=== PATIENT | female | born 1985 | race Caucasian/White ===

== ENCOUNTER 2018-07-07 18:59 | Inpatient (IN) | payer OTHER ==
[~2018-07-07 18:59] MED LIST: PROPOFOL 200 MG INJ
[2018-07-07 20:11] LABS: ADD MAN DIFF? NO
[2018-07-07 20:14] LABS: BASOPHILS % 0.3 % (0.0-2.0); EOSINOPHILS # 0.1 10^3/ul (0.0-0.5); EOSINOPHILS % 1.2 % (0.0-7.0); HEMATOCRIT 38.1 % (37.0-47.0); HEMOGLOBIN 12.6 g/dl (12.0-16.0); LYMPHOCYTES # 2.5 10^3/ul (0.8-2.9); LYMPHOCYTES % 21.2 % (15.0-51.0); MEAN CORPUSCULAR HEMOGLOBIN 27.7 pg (29.0-33.0); MEAN CORPUSCULAR HGB CONC 33.1 g/dl (32.0-37.0); MEAN CORPUSCULAR VOLUME 83.7 fl (82.0-101.0); MEAN PLATELET VOLUME 10.6 fl (7.4-10.4); MONOCYTE # 0.8 10^3/ul (0.3-0.9); MONOCYTES % 6.9 % (0.0-11.0); NEUTROPHIL # 8.3 10^3/ul (1.6-7.5); NEUTROPHILS % 69.6 % (39.0-77.0); PLATELET COUNT 255 10^3/UL (140-415); RED BLOOD COUNT 4.55 10^6/ul (4.20-5.40); RED CELL DISTRIBUTION WIDTH 13.2 % (11.5-14.5)
[2018-07-07 20:19] LABS: INR 0.92; PROTIME 12.5 Sec (11.9-14.9)
[2018-07-07] MEDS ORDERED: OXYTOCIN 30 UNITS/LR 500 ML IV (20:30)
[2018-07-07] MEDS ORDERED: METHYLERGONOVINE 0.2 MG INJ IM (20:30)
[2018-07-07] MEDS ORDERED: CARBOPROST 250 MCG INJ IM (20:30)
[2018-07-07] MEDS ORDERED: MISOPROSTOL 200 MCG TAB PR ×2 (20:30→23:30)
[2018-07-07] MEDS: LACTATED RINGER'S 1,000 ML IV (20:34)
[2018-07-07 20:59] LABS: HEPATITIS B SURFACE ANTIGEN NEGATIVE (NEGATIVE)
[2018-07-07] MEDS: METOCLOPRAMIDE 10 MG INJ IV (21:51)
[2018-07-07] MEDS: FAMOTIDINE 20 MG INJ IV (21:51)
[2018-07-07] MEDS: ONDANSETRON 4 MG INJ IV (21:51)
[2018-07-07] MEDS ORDERED: morphine SULFATE/PF (10 MG/10 ML) INJ (21:53)
[2018-07-07] MEDS ORDERED: OXYTOCIN 10 UNIT INJ (21:53)
[2018-07-07] MEDS ORDERED: MIDAZOLAM 1 MG/ML 2 ML INJ (23:26)
[2018-07-07] MEDS ORDERED: ONDANSETRON 4 MG INJ (23:27)
[2018-07-07] MEDS ORDERED: PHENYLephrine (100 MCG/ML) 10ML SYG (23:28)
[2018-07-07] MEDS ORDERED: NA PHOSPHATE/BIPHOS 133 ML ENEMA PR (23:30)
[2018-07-07] MEDS ORDERED: DEXAMETHASONE 4 MG/ML 1 ML INJ (23:37)
[2018-07-08] MEDS ORDERED: HYDROmorphONE 1 MG/5 ML IV SYRINGE IV ×3 (00:30)
[2018-07-08] MEDS ORDERED: ZOLPIDEM 5 MG TAB PO (00:30)
[2018-07-08] MEDS ORDERED: MIDAZOLAM 1 MG/ML 2 ML INJ IV (00:30)
[2018-07-08] MEDS ORDERED: FENTAnyl 50 MCG/ML VIAL IV ×2 (00:30)
[2018-07-08] MEDS ORDERED: KETOROLAC 30 MG INJ IV (00:30)
[2018-07-08] MEDS ORDERED: NALOXONE (0.4 MG/ML) INJ IV (00:30)
[2018-07-08] MEDS ORDERED: ONDANSETRON 4 MG INJ IV ×2 (00:30)
[2018-07-08] MEDS ORDERED: PROCHLORPERAZINE 10 MG INJ IV (00:30)
[2018-07-08] MEDS ORDERED: LORAZEPAM 2 MG INJ IV (00:30)
[2018-07-08] MEDS ORDERED: DIPHENHYDRAMINE 50 MG INJ IV ×2 (00:30)
[2018-07-08] MEDS ORDERED: LEVALBUTEROL (NEB) 1.25 MG/0.5 ML AMP HHN (00:30)
[2018-07-08] MEDS ORDERED: IPRATROPIUM (NEB) 0.5 MG/2.5 ML AMP HHN (00:30)
[2018-07-08] MEDS ORDERED: HYDROmorphONE 0.5 MG/0.5 ML SYG IV (00:30)
[2018-07-08] MEDS ORDERED: HALOPERIDOL 5 MG INJ IV (00:30)
[2018-07-08] MEDS ORDERED: TRIMETHOBENZAMIDE 100 MG/ML VIAL IM (00:30)
[2018-07-08] MEDS: OXYTOCIN 30 UNITS/LR 500 ML IV ×2 (00:55→06:10)
[2018-07-08] MEDS: CEFAZOLIN 2 GM/50 ML (PMX) 50 ML IVPB (02:14)
[2018-07-08] MEDS: LACTATED RINGER'S 1,000 ML IV ×2 (02:45→17:50)
[2018-07-08] MEDS ORDERED: CARBOPROST 250 MCG INJ IM (05:00)
[2018-07-08] MEDS ORDERED: OXYTOCIN 30 UNITS/LR 500 ML IV (05:00)
[2018-07-08] MEDS ORDERED: MISOPROSTOL 200 MCG TAB PR (05:00)
[2018-07-08] MEDS ORDERED: METHYLERGONOVINE 0.2 MG INJ IM (05:00)
[2018-07-08 07:43] LABS: ADD MAN DIFF? NO
[2018-07-08 07:48] LABS: WHITE BLOOD COUNT 16.6 10^3/ul (4.8-10.8)
[2018-07-08 07:48] LABS: BASOPHILS % 0.2 % (0.0-2.0); HEMATOCRIT 32.4 % (37.0-47.0); HEMOGLOBIN 10.8 g/dl (12.0-16.0); LYMPHOCYTES # 1.6 10^3/ul (0.8-2.9); LYMPHOCYTES % 9.5 % (15.0-51.0); MEAN CORPUSCULAR HEMOGLOBIN 27.9 pg (29.0-33.0); MEAN CORPUSCULAR HGB CONC 33.3 g/dl (32.0-37.0); MEAN CORPUSCULAR VOLUME 83.7 fl (82.0-101.0); MEAN PLATELET VOLUME 10.9 fl (7.4-10.4); MONOCYTES % 6.1 % (0.0-11.0); NEUTROPHIL # 13.9 10^3/ul (1.6-7.5); NEUTROPHILS % 83.5 % (39.0-77.0); PLATELET COUNT 239 10^3/UL (140-415); RED BLOOD COUNT 3.87 10^6/ul (4.20-5.40); RED CELL DISTRIBUTION WIDTH 13.4 % (11.5-14.5)
[2018-07-08] MEDS: KETOROLAC 30 MG INJ IV ×2 (08:52→16:09)
[2018-07-08] MEDS: LANOLIN HPA 1 PKT TOP (08:54)
[2018-07-08] MEDS: SENNA/DOCUSATE NA (8.6MG/50MG) TAB PO ×2 (08:54→21:06)
[2018-07-08] MEDS: ALBUTEROL HFA 8 GM INHALER INH (16:08)
[2018-07-08] MEDS ORDERED: LORAZEPAM 1 MG TAB (21:03)
[2018-07-08] MEDS: HYDROmorphONE 0.5 MG/0.5 ML SYG IV (21:06)
[2018-07-08] MEDS: LORAZEPAM 0.5 MG TAB PO (21:08)
[2018-07-08] MEDS: ENOXAPARIN 40 MG/0.4 ML SYG SC (21:43)
[2018-07-08 22:03] LABS: RAPID PLASMA REAGIN NONREACTIVE (NR)
[2018-07-08] MEDS: OXYCODONE/ACETAMINOPHEN (5/325) TAB PO (23:26)
[2018-07-09] MEDS: IBUPROFEN 600 MG TAB PO ×5 (00:27→23:33)
[2018-07-09] MEDS: OXYCODONE/ACETAMINOPHEN (5/325) TAB PO ×4 (04:15→20:03)
[2018-07-09] MEDS: LEVOTHYROXINE 125 MCG TAB PO (05:54)
[2018-07-09] MEDS: FLUTICASONE 0.05% 16 GM NAS SPRAY NASAL (08:48)
[2018-07-09] MEDS: SENNA/DOCUSATE NA (8.6MG/50MG) TAB PO ×2 (08:48→20:45)
[2018-07-09] MEDS: ENOXAPARIN 40 MG/0.4 ML SYG SC ×2 (08:52→20:45)
[2018-07-09] MEDS: ALBUTEROL HFA 8 GM INHALER INH (14:06)
[2018-07-10] MEDS: OXYCODONE/ACETAMINOPHEN (5/325) TAB PO ×3 (02:56→13:24)
[2018-07-10] MEDS: LEVOTHYROXINE 125 MCG TAB PO (06:05)
[2018-07-10] MEDS: IBUPROFEN 600 MG TAB PO ×2 (06:05→11:47)
[2018-07-10] MEDS: FLUTICASONE 0.05% 16 GM NAS SPRAY NASAL (08:17)
[2018-07-10] MEDS: SENNA/DOCUSATE NA (8.6MG/50MG) TAB PO (08:17)
[2018-07-10] MEDS: ENOXAPARIN 40 MG/0.4 ML SYG SC (08:19)
[2018-07-10] MEDS: DIPHTH/TET/ACEL PERTUSS (ADULT) 0.5 ML VIAL IM* (09:00)
[2018-07-10] MEDS: MEASLES,MUMPS,RUBELLA VACCINE INJ SC* (09:00)
== END 2018-07-10 14:00 | disposition home or self-care (01) | DRG 788 ==
LOC: L-D 07-08 00:49 → PP1 07-08 03:28 → L-D 22:49
PROVIDERS: Specialist
PROC: 10D00Z1 Extraction of Products of Conception, Low, Open Approach (ICD-10-PCS; principal; 2018-07-08)
DX: O34.211 Maternal care for low transverse scar from previous cesarean delivery (principal); O99.284 Endocrine, nutritional and metabolic diseases complicating childbirth; E03.9 Hypothyroidism, unspecified; O99.344 Other mental disorders complicating childbirth; F41.9 Anxiety disorder, unspecified; O99.214 Obesity complicating childbirth; E66.01 Morbid (severe) obesity due to excess calories; O99.513 Diseases of the respiratory system complicating pregnancy, third trimester; J45.909 Unspecified asthma, uncomplicated; O99.353 Diseases of the nervous system complicating pregnancy, third trimester; G47.30 Sleep apnea, unspecified; O99.62 Diseases of the digestive system complicating childbirth; K21.9 Gastro-esophageal reflux disease without esophagitis; Z3A.39 39 weeks gestation of pregnancy; Z37.0 Single live birth
CPT/HCPCS: 85025; 85610; 85730; 86592; 86850; 86900; 86901; 87340; 99464

== ENCOUNTER 2019-02-24 08:12 | Observation (INO) | payer OTHER ==
[2019-02-24] MEDS: KETOROLAC 30 MG INJ IV (08:41)
[2019-02-24] MEDS: SOD CHLORIDE 0.9% 1,000 ML IV ×2 (08:41→20:53)
[2019-02-24] MEDS: ONDANSETRON 4 MG INJ IV ×2 (08:41→12:28)
[2019-02-24] MEDS: ALPRAZOLAM 0.25 MG TAB PO (08:46)
[2019-02-24 08:57] LABS: ADD MAN DIFF? NO
[2019-02-24 09:03] LABS: WHITE BLOOD COUNT 15.1 10^3/ul (4.8-10.8)
[2019-02-24 09:03] LABS: BASOPHIL # 0.1 10^3/ul (0.0-0.1); BASOPHILS % 0.4 % (0.0-2.0); EOSINOPHILS # 0.2 10^3/ul (0.0-0.5); EOSINOPHILS % 1.5 % (0.0-7.0); HEMATOCRIT 41.2 % (37.0-47.0); HEMOGLOBIN 13.3 g/dl (12.0-16.0); LYMPHOCYTES # 2.7 10^3/ul (0.8-2.9); MEAN CORPUSCULAR HEMOGLOBIN 27.8 pg (29.0-33.0); MEAN CORPUSCULAR HGB CONC 32.3 g/dl (32.0-37.0); MEAN PLATELET VOLUME 10.2 fl (7.4-10.4); MONOCYTE # 0.9 10^3/ul (0.3-0.9); NEUTROPHIL # 11.2 10^3/ul (1.6-7.5); NEUTROPHILS % 73.6 % (39.0-77.0); PLATELET COUNT 299 10^3/UL (140-415); RED BLOOD COUNT 4.79 10^6/ul (4.20-5.40); RED CELL DISTRIBUTION WIDTH 12.8 % (11.5-14.5)
[2019-02-24 09:19] LABS: ALANINE AMINOTRANSFERASE 48 IU/L (13-69); ALKALINE PHOSPHATASE 76 IU/L (42-121); ASPARTATE AMINO TRANSFERASE 31 IU/L (15-46); BILIRUBIN,INDIRECT 0.7 mg/dl (0-1.1); BILIRUBIN,TOTAL 0.7 mg/dl (0.2-1.3); BLOOD UREA NITROGEN 9 mg/dl (7-20); CALCIUM 9.4 mg/dl (8.4-10.2); CHLORIDE 102 mmol/L (97-110); CREATININE 0.64 mg/dl (0.44-1.00); Estimated GFR > 60 mL/min (>60); GLUCOSE 108 mg/dl (70-220); LIPASE 58 U/L (23-300); POTASSIUM 4.2 mmol/L (3.5-5.1); SODIUM 140 mmol/L (135-144); TOTAL PROTEIN 7.8 g/dl (6.1-8.1)
[2019-02-24 09:20] LABS: ANION GAP 11 (5-13); CARBON DIOXIDE 27 mmol/L (21-31)
[2019-02-24 09:36] LABS: ALBUMIN 4.3 g/dl (3.3-4.9); ALBUMIN/GLOBULIN RATIO 1.22
[2019-02-24] MEDS: PIPER-TAZO 3.375 GM IV (PMX) 100 ML IVPB ×2 (10:20→19:02)
[2019-02-24 10:25] LABS: ADD UMIC NO; UR ASCORBIC ACID NEGATIVE (NEGATIVE); UR BILIRUBIN (Dip) NEGATIVE (NEGATIVE); UR BLOOD (Dip) NEGATIVE (NEGATIVE); UR CLARITY CLEAR (CLEAR); UR COLOR STRAW (YELLOW); UR GLUCOSE (Dip) NEGATIVE (NEGATIVE); UR KETONES (Dip) NEGATIVE (NEGATIVE); UR LEUKOCYTE ESTERASE (Dip) NEGATIVE Leu/ul (NEGATIVE); UR NITRITE (Dip) NEGATIVE (NEGATIVE); UR SPECIFIC GRAVITY (Dip) 1.005 (1.003-1.030); UR TOTAL PROTEIN (Dip) NEGATIVE (NEGATIVE); UR UROBILINOGEN (Dip) NEGATIVE (NEGATIVE)
[2019-02-24] MEDS ORDERED: ACETAMINOPHEN 325 MG TAB PO ×2 (11:00→14:30)
[2019-02-24] MEDS: morphine 4 MG/ML VIAL IV (11:02)
[2019-02-24] MEDS ORDERED: ALBUTEROL 0.083% (NEB) 2.5 MG/3 ML AMP HHN (14:30)
[2019-02-24] MEDS ORDERED: NACL 0.9% 3 ML SYG IV (14:30)
[2019-02-24] MEDS ORDERED: HYDROCODONE/APAP (5/325) TAB PO (14:30)
[2019-02-24 14:44] LABS: HEMOGLOBIN A1C 5.7 % (0-5.9)
[2019-02-24 14:50] LABS: FREE T4 (FREE THYROXINE) 1.21 ng/dl (0.79-2.35)
[2019-02-24] MEDS: morphine 2 MG INJ IV ×2 (16:44→22:47)
[2019-02-24] MEDS: LORAZEPAM 2 MG INJ IV (19:51)
[2019-02-24] MEDS: MONTELUKAST 10 MG TAB PO (20:53)
[2019-02-25] MEDS: PIPER-TAZO 3.375 GM IV (PMX) 100 ML IVPB ×3 (00:20→11:44)
[2019-02-25 05:59] LABS: ADD MAN DIFF? NO
[2019-02-25 06:05] LABS: WHITE BLOOD COUNT 8.4 10^3/ul (4.8-10.8)
[2019-02-25 06:05] LABS: BASOPHIL # 0.1 10^3/ul (0.0-0.1); BASOPHILS % 0.6 % (0.0-2.0); EOSINOPHILS # 0.3 10^3/ul (0.0-0.5); EOSINOPHILS % 3.3 % (0.0-7.0); HEMATOCRIT 36.7 % (37.0-47.0); HEMOGLOBIN 11.6 g/dl (12.0-16.0); LYMPHOCYTES # 3.1 10^3/ul (0.8-2.9); LYMPHOCYTES % 37.2 % (15.0-51.0); MEAN CORPUSCULAR HEMOGLOBIN 28.2 pg (29.0-33.0); MEAN CORPUSCULAR HGB CONC 31.6 g/dl (32.0-37.0); MEAN CORPUSCULAR VOLUME 89.3 fl (82.0-101.0); MEAN PLATELET VOLUME 10.2 fl (7.4-10.4); MONOCYTE # 0.8 10^3/ul (0.3-0.9); MONOCYTES % 9.7 % (0.0-11.0); NEUTROPHIL # 4.1 10^3/ul (1.6-7.5); NEUTROPHILS % 48.7 % (39.0-77.0); PLATELET COUNT 260 10^3/UL (140-415); RED BLOOD COUNT 4.11 10^6/ul (4.20-5.40); RED CELL DISTRIBUTION WIDTH 12.8 % (11.5-14.5)
[2019-02-25] MEDS: LEVOTHYROXINE 125 MCG TAB PO (06:28)
[2019-02-25 06:29] LABS: ALANINE AMINOTRANSFERASE 38 IU/L (13-69); ALBUMIN 3.6 g/dl (3.3-4.9); ALBUMIN/GLOBULIN RATIO 1.12; ALKALINE PHOSPHATASE 62 IU/L (42-121); ANION GAP 8 (5-13); ASPARTATE AMINO TRANSFERASE 26 IU/L (15-46); BILIRUBIN,INDIRECT 0.8 mg/dl (0-1.1); BILIRUBIN,TOTAL 0.8 mg/dl (0.2-1.3); BLOOD UREA NITROGEN 11 mg/dl (7-20); CALCIUM 8.8 mg/dl (8.4-10.2); CARBON DIOXIDE 27 mmol/L (21-31); CHLORIDE 104 mmol/L (97-110); CREATININE 0.74 mg/dl (0.44-1.00); Estimated GFR > 60 mL/min (>60); GLUCOSE 97 mg/dl (70-220); POTASSIUM 4.2 mmol/L (3.5-5.1); SODIUM 139 mmol/L (135-144); TOTAL PROTEIN 6.8 g/dl (6.1-8.1)
[2019-02-25 07:14] LABS: PHOSPHORUS 4.8 mg/dl (2.5-4.9)
[2019-02-25 07:18] LABS: CHOLESTEROL 136 mg/dl (100-200)
[2019-02-25 07:18] LABS: CHOL/HDL RATIO 4.2 RATIO; HDL CHOLESTEROL 32 mg/dl (34-82); LDL CHOLESTEROL,CALCULATED 78 mg/dl; TRIGLYCERIDES 129 mg/dl (0-149)
[2019-02-25] MEDS: FLUTICASONE 0.05% 16 GM NAS SPRAY NASAL (08:34)
[2019-02-25] MEDS: MOMETASONE 0.24 GM INHALER INH (08:34)
[2019-02-25] MEDS: SOD CHLORIDE 0.9% 1,000 ML IV (10:48)
== END 2019-02-25 15:27 | disposition home or self-care (01) ==
LOC: FTE 08:12 → PP2 10:57
DX: R10.11 Right upper quadrant pain (principal); E03.9 Hypothyroidism, unspecified; G47.33 Obstructive sleep apnea (adult) (pediatric); J45.909 Unspecified asthma, uncomplicated; F41.9 Anxiety disorder, unspecified; K76.0 Fatty (change of) liver, not elsewhere classified; E66.01 Morbid (severe) obesity due to excess calories; Z68.42 Body mass index [BMI] 45.0-49.9, adult; Z79.82 Long term (current) use of aspirin
CPT/HCPCS: 74176; 76705; 80053; 80061; 81003; 81025; 83036; 83690; 83735; 84100; 84439; 84443; 85025; 96374; 96375; 99285-25; G0378